=== PATIENT | female | born 1955 ===

== ENCOUNTER 2022-09-27 09:04 | Outpatient (REF) | payer BC, SELFPAY | END 2022-09-27 09:05 | disposition home or self-care (01) | LOC: HO.SH 09:04 | PROVIDERS: Visit Provider Nurse Practitioner Primary Care | DX: Z01.118 Encounter for examination of ears and hearing with other abnormal findings (principal); H90.3 Sensorineural hearing loss, bilateral | CPT/HCPCS: 92557; 92567 ==

== ENCOUNTER 2024-10-28 08:30 | Outpatient (REF) | payer MEDICARE, SELFPAY | END 2024-10-28 08:31 | disposition home or self-care (01) | LOC: HO.SH 08:30 | PROVIDERS: Visit Provider Nurse Practitioner Primary Care | DX: Z01.118 Encounter for examination of ears and hearing with other abnormal findings (principal); H90.3 Sensorineural hearing loss, bilateral | CPT/HCPCS: 92552; 92556 ==